=== PATIENT | female | born 1940 | race Caucasian/White ===

== ENCOUNTER → 2017-07-07 | Outpatient (CLI) | payer MEDICARE | END | disposition home or self-care (01) | LOC: CVU 10:41 | PROVIDERS: ATTEND Internal Medicine Cardiovascular Disease | DX: I35.1 Nonrheumatic aortic (valve) insufficiency (principal); I48.1 Persistent atrial fibrillation; E11.9 Type 2 diabetes mellitus without complications; I10 Essential (primary) hypertension; I51.7 Cardiomegaly | CPT/HCPCS: 93306 ==